=== PATIENT | male | born 1975 ===

== ENCOUNTER 2024-09-20 11:42 | Outpatient (REF) | payer BC, SELFPAY ==
--- NOTE | 2024-09-20 10:50 | ORMUBX_PTH ---
PATIENT: Fermin Hogue LOC: [facility] U#:[id number] AGE/SX: 49/M ROOM: RE09/20/[address]: Elda Walter : 1975 BED: DIS: 09/20/2024 SPEC #: [id number] RECD: 09/20/24 16:52 STATUS: RITA REQ #: [id number] DEMARCUS: 09/20/24 10:[address]: Elda Walter DEPT: Surgical Specimen RECD BY: Greta Kwon ENTERED: 09/20/24 16:52 SP TYPE: ORMUBX OTHR DR: Amador Alexis Tissues: 1 - MUCOSA, NOS Procedures: GROSS AND MICRO LEVEL 4 Comments: [id number]
== END 2024-09-20 11:43 | disposition home or self-care (01) ==
LOC: LBN 11:42
PROVIDERS: PCP Family Medicine; Visit Provider Registered Nurse Maternal Newborn
DX: K13.70 Unspecified lesions of oral mucosa (principal)
CPT/HCPCS: 88305